=== PATIENT | male | born 1970 | race Caucasian/White ===

== ENCOUNTER 2022-04-04 06:58 | Day surgery (SDC) | payer OTHER, BC ==
[~2022-04-04 06:58] MED LIST: Lactated Ringers 1,000 ML IV SCH; Lidocaine 1%/Sod Bicarbonate in NS 8.4% 1 ML Syringe IDERM PRN; Sodium Chloride 0.9% 10 ML Syringe FLUSH PRN; Sodium Chloride 0.9% 10 ML Syringe FLUSH SCH
[2022-04-04] MEDS ORDERED: Acetaminophen 325 MG Tab PO SCH (07:00)
[2022-04-04] MEDS ORDERED: Gabapentin 300 MG Cap PO SCH (07:00)
[2022-04-04] MEDS ORDERED: Bupivacaine 0.5%/EPINEPHrine 1:200,000 50 ML MDV ONE (07:11)
[2022-04-04] MEDS ORDERED: Lidocaine 1% with EPINEPHrine 1:100,000 20 ML MDV ONE (07:11)
[2022-04-04] MEDS ORDERED: Albuterol 0.083% 2.5 MG/3 ML Neb Soln NEB SCH (07:25)
[2022-04-04] MEDS ORDERED: Propofol 200 MG/20 ML SDV ONE ×3 (07:29→08:53)
[2022-04-04] MEDS ORDERED: Midazolam 1 MG/ML 2 ML SDV ONE ×2 (07:29→08:46)
[2022-04-04] MEDS ORDERED: ceFAZolin 1 GM Vial ONE (07:29)
[2022-04-04] MEDS ORDERED: Lactated Ringers 1,000 ML ONE (07:29)
[2022-04-04] MEDS ORDERED: fentaNYL 100 MCG/2 ML SDV ONE (07:29)
[2022-04-04] MEDS ORDERED: Ketamine 500 mg/10 ML MDV ONE (08:25)
[2022-04-04] MEDS ORDERED: Dexmedetomidine 200 MCG/2 ML SDV ONE (08:27)
[2022-04-04] MEDS ORDERED: Lidocaine 1% 4 ML ONE (08:55)
[2022-04-04] MEDS ORDERED: HYDROmorphone 0.5 MG/0.5 ML Syringe IVPUSH PRN (09:34)
[2022-04-04] MEDS ORDERED: fentaNYL 100 MCG/2 ML SDV IVPUSH PRN (09:34)
[2022-04-04] MEDS ORDERED: Ondansetron 4 MG/2 ML SDV IVPUSH PRN (09:34)
== END 2022-04-04 10:27 | disposition home or self-care (01) ==
LOC: JD.SDS 06:58
PROVIDERS: ATTEND Surgery
DX: K42.9 Umbilical hernia without obstruction or gangrene (principal); I10 Essential (primary) hypertension; K21.9 Gastro-esophageal reflux disease without esophagitis; M10.9 Gout, unspecified; E66.9 Obesity, unspecified; G47.30 Sleep apnea, unspecified; Z98.890 Other specified postprocedural states; Z91.030 Bee allergy status; Z87.891 Personal history of nicotine dependence; Z68.41 Body mass index [BMI] 40.0-44.9, adult
CPT/HCPCS: A9270-GY; C1781; J0690; J2250; J2704; J3010; J3490; J7120

== ENCOUNTER 2022-11-11 22:56 | Emergency (ER) | payer BC, OTHER ==
[2022-11-11] MEDS ORDERED: predniSONE 20 MG Tab PO ONE (23:32)
[2022-11-11] MEDS ORDERED: Colchicine 0.6 MG Tab PO ONE (23:33)
[2022-11-11] MEDS ORDERED: Ibuprofen 800 MG Tab PO ONE (23:34)
[2022-11-11] MEDS ORDERED: Acetaminophen/oxyCODONE 325-5 MG Tab PO ONE (23:34)
[2022-11-12] MEDS ORDERED: Colchicine 0.6 MG Tab PO SCH (00:45)
== END 2022-11-12 00:11 | disposition home or self-care (01) ==
LOC: JD.ED 22:56
DX: M10.462 Other secondary gout, left knee (principal); I10 Essential (primary) hypertension; K21.9 Gastro-esophageal reflux disease without esophagitis; F17.210 Nicotine dependence, cigarettes, uncomplicated; E66.9 Obesity, unspecified; Z91.030 Bee allergy status; Z79.82 Long term (current) use of aspirin; Z68.37 Body mass index [BMI] 37.0-37.9, adult
CPT/HCPCS: 99283; A9270; J7512

== ENCOUNTER 2022-11-18 23:46 | Inpatient (IN) | payer BC ==
[2022-11-19] MEDS ORDERED: Ondansetron 4 MG/2 ML SDV IVPUSH ONE (00:13)
[2022-11-19] MEDS ORDERED: Sodium Chloride 0.9% 1,000 ML IV SCH (00:15)
[2022-11-19] MEDS ORDERED: Iopamidol 612 MG/ML 100 ML Bottle IVPUSH ONE (00:34)
[2022-11-19] MEDS: Sodium Chloride 0.9% 10 ML Syringe FLUSH ONE ×2 (00:36→00:46)
[2022-11-19] MEDS ORDERED: Piperacillin/Tazobactam 4.5 GM in Sodium Chloride 0.9% 100 ML IV ONE (02:47)
[2022-11-19] MEDS ORDERED: Ondansetron 4 MG/2 ML SDV IVPUSH PRN (04:12)
[2022-11-19] MEDS ORDERED: LORazepam 2 MG/ML SDV IVPUSH PRN (04:14)
[2022-11-19] MEDS ORDERED: Vancomycin 2 GM in Sodium Chloride 0.9% 500 ML IV ONE (04:20)
[2022-11-19] MEDS ORDERED: Dextrose 5%-Lactated Ringers 1,000 ML IV SCH (04:30)
[2022-11-19] MEDS: HYDROmorphone 1 MG/ML Syringe IVPUSH PRN ×3 (05:47→21:55)
[2022-11-19] MEDS ORDERED: Colchicine 0.6 MG Tab PO ONE (12:09)
[2022-11-19] MEDS: Piperacillin/Tazobactam 4.5 GM in Sodium Chloride 0.9% 100 ML IV SCH ×2 (12:20→20:48)
[2022-11-19] MEDS: Enalapril 5 MG Tab PO SCH (12:53)
[2022-11-19] MEDS: Heparin Sodium 5,000 Units/ML Vial SUBCUT SCH ×2 (12:53→20:48)
[2022-11-19] MEDS: Docusate Sodium 100 MG Cap PO SCH ×2 (12:53→20:48)
[2022-11-19] MEDS ORDERED: Allopurinol 300 MG Tab PO SCH (16:00)
[2022-11-19] MEDS: Allopurinol 300 MG Tab PO SCH (18:05)
[2022-11-20] MEDS: HYDROmorphone 1 MG/ML Syringe IVPUSH PRN ×2 (01:00→08:37)
[2022-11-20] MEDS: Piperacillin/Tazobactam 4.5 GM in Sodium Chloride 0.9% 100 ML IV SCH ×2 (04:22→11:40)
[2022-11-20] MEDS: Heparin Sodium 5,000 Units/ML Vial SUBCUT SCH ×2 (04:26→11:40)
[2022-11-20 07:01] LABS: HEMOGLOBIN A1C 5.7 %
[2022-11-20] MEDS: Enalapril 5 MG Tab PO SCH (08:35)
[2022-11-20] MEDS: Allopurinol 300 MG Tab PO SCH (08:35)
[2022-11-20] MEDS: Docusate Sodium 100 MG Cap PO SCH (08:35)
[2022-11-20] MEDS ORDERED: Colchicine 0.6 MG Tab PO ONE (11:21)
== END 2022-11-20 17:45 | disposition home or self-care (01) | DRG 721 ==
LOC: JD.ED 23:46 → JD.MS 11-19 03:35
PROVIDERS: ADMIT Pediatrics; ATTEND Pediatrics
DX: T81.49XA Infection following a procedure, other surgical site, initial encounter (principal); K63.2 Fistula of intestine; L02.216 Cutaneous abscess of umbilicus; I10 Essential (primary) hypertension; G47.33 Obstructive sleep apnea (adult) (pediatric); L03.316 Cellulitis of umbilicus; K85.90 Acute pancreatitis without necrosis or infection, unspecified; M10.9 Gout, unspecified; Z79.899 Other long term (current) drug therapy; K21.9 Gastro-esophageal reflux disease without esophagitis; Z98.890 Other specified postprocedural states
CPT/HCPCS: 36415; 74177; 74177-26; 80053; 80202; 80307; 81001; 82150; 83036; 83605; 83690; 83735; 84550; 85025; 86140; 96361; 96374; 96375; 99285-25; A9270-GY; J1170; J1644; J2405; J2543; J3370; J3490; J7030; J7040; J7121; Q9967

== ENCOUNTER 2022-12-07 06:59 | Day surgery (SDC) | payer BC ==
[~2022-12-07 06:59] MED LIST changes: +Gabapentin 300 MG Cap PO SCH
[2022-12-07] MEDS ORDERED: Acetaminophen 325 MG Tab PO SCH (07:00)
[2022-12-07] MEDS ORDERED: Bupivacaine 0.5%/EPINEPHrine 1:200,000 50 ML MDV ONE (07:09)
[2022-12-07] MEDS ORDERED: Lidocaine 1% 30 ML SDV ONE (07:10)
[2022-12-07] MEDS ORDERED: Hydrocortisone Sodium Succinate 100 MG/2 ML SDV ONE (08:10)
[2022-12-07] MEDS ORDERED: Propofol 200 MG/20 ML SDV ONE (08:19)
[2022-12-07] MEDS ORDERED: Midazolam 1 MG/ML 2 ML SDV ONE (08:19)
[2022-12-07] MEDS ORDERED: fentaNYL 100 MCG/2 ML SDV ONE (08:19)
[2022-12-07] MEDS ORDERED: Ondansetron 4 MG/2 ML SDV ONE (08:21)
[2022-12-07] MEDS ORDERED: Lidocaine 1% 5 ML VIAL ONE (08:21)
[2022-12-07] MEDS ORDERED: Dexamethasone 4 MG/ML 5 ML MDV ONE (08:21)
[2022-12-07] MEDS ORDERED: Rocuronium 50 MG/5 ML Vial ONE (08:21)
[2022-12-07] MEDS ORDERED: ceFAZolin 2 GM Vial ONE (08:23)
[2022-12-07] MEDS ORDERED: metroNIDAZOLE/Normal Saline 100 ML ONE (08:24)
[2022-12-07] MEDS ORDERED: Lactated Ringers 1,000 ML ONE (09:21)
[2022-12-07] MEDS ORDERED: HYDROmorphone 0.5 MG/0.5 ML Syringe ONE ×2 (09:23→09:39)
[2022-12-07] MEDS ORDERED: fentaNYL 100 MCG/2 ML SDV IVPUSH PRN (09:26)
[2022-12-07] MEDS ORDERED: HYDROmorphone 0.5 MG/0.5 ML Syringe IVPUSH PRN (09:26)
[2022-12-07] MEDS ORDERED: Ondansetron 4 MG/2 ML SDV IVPUSH PRN (09:26)
[2022-12-07] MEDS ORDERED: Ketorolac 30 MG/ML SDV ONE (10:01)
[2022-12-07] MEDS ORDERED: Acetaminophen/oxyCODONE 325-5 MG Tab PO ONE (11:24)
== END 2022-12-07 12:20 | disposition home or self-care (01) ==
LOC: JD.SDS 06:59
PROVIDERS: ATTEND Surgery
DX: S31.105D Unspecified open wound of abdominal wall, periumbilic region without penetration into peritoneal cavity, subsequent encounter (principal); I10 Essential (primary) hypertension; K21.9 Gastro-esophageal reflux disease without esophagitis; M10.9 Gout, unspecified; E78.00 Pure hypercholesterolemia, unspecified; G43.909 Migraine, unspecified, not intractable, without status migrainosus; E66.9 Obesity, unspecified; G47.33 Obstructive sleep apnea (adult) (pediatric); F17.210 Nicotine dependence, cigarettes, uncomplicated; Z98.890 Other specified postprocedural states; Z79.899 Other long term (current) drug therapy; Z79.82 Long term (current) use of aspirin; Z91.030 Bee allergy status; Z68.36 Body mass index [BMI] 36.0-36.9, adult
CPT/HCPCS: 49591; 93005; A9270; J0690; J1100; J1170; J1720; J1885; J2250; J2405; J2704; J3010; J3490; J7120; 00840